=== PATIENT | female | born 1970 | race American Indian/Alaskan Native ===

== ENCOUNTER 2017-06-20 23:13 | Emergency (ER) | payer SELFPAY ==
[2017-06-21 04:03] VITALS: BP 128/92
[2017-06-21 05:40] LABS: Bilirubin,Urine NEG (Negative); Blood,Urine MOD (Negative); Ketones,Urine NEG (Negative); Leukocyte Esterase,Urine NEG (Negative); Mucus,Urine FEW /HPF; Nitrite,Urine NEG (Negative); Protein,Urine <15 mg/dL mg/dL (Negative); Urobilinogen,Urine < 2.0 mg/dL (<2.0)
--- NOTE | 2017-06-21 06:40 | Emergency Department Report ---
ED General Adult HPI - General Chief complaint: Skin/Abscess/Foreign Body Stated complaint: FREQUENT URINATION Time Seen by Provider: 06/21/17 06:35 Source: patient Mode of arrival: Ambulatory Limitations: No Limitations - History of Present Illness Initial comments: pt presents for retain condom, x 2 days , pt endorse condom came off during intercourse and has been unable to remove at home, pt denies pain no fever no chills no vaginal pain no vaginal discharger Onset/Timin -: days(s) Radiation: non-radiation Severity scale (0 -10): 0 Improves with: none Worsens with: none Associated Symptoms: denies other symptoms, other - Related Data Previous Rx's Medication Instructions Recorded Last Taken Type Hydrochlorothiazide [HCTZ] 25 mg PO QDAY #30 tablet 04/26/16 Unknown Rx amLODIPine [Norvasc] 10 mg PO DAILY #30 tablet 04/26/16 Unknown Rx Fluconazole [Diflucan TAB] 150 mg PO ONCE #1 tablet 06/21/17 Unknown Rx metroNIDAZOLE [Flagyl] 500 mg PO Q12HR #14 tab 06/21/17 Unknown Rx Allergies Allergy/AdvReac Type Severity Reaction Status Date / Time No Known Allergies Allergy Verified 10/15/14 09:39 ED Review of Systems ROS: Stated complaint: FREQUENT URINATION Other details as noted in HPI Constitutional: denies: chills, fever Eyes: denies: eye pain, eye discharge, vision change ENT: denies: ear pain, throat pain Respiratory: denies: cough, shortness of breath, wheezing Cardiovascular: denies: chest pain, palpitations Endocrine: no symptoms reported Gastrointestinal: denies: abdominal pain, nausea, diarrhea Genitourinary: other (retained condom ). denies: urgency, dysuria, discharge Musculoskeletal: denies: back pain, joint swelling, arthralgia Skin: denies: rash, lesions Neurological: denies: headache, weakness, paresthesias Psychiatric: denies: anxiety, depression Hematological/Lymphatic: denies: easy bleeding, easy bruising ED Past Medical Hx - Past Medical History Previous Medical History?: Yes Hx Hypertension: Yes Hx Diabetes: No Additional medical history: HIGH CHOLESTEROL - Surgical History Past Surgical History?: Yes Additional Surgical History: tubal ligation - Social History Smoking Status: Never Smoker Substance Use Type: Alcohol - Medications Home Medications: Home Medications Medication Instructions Recorded Confirmed Last Taken Type Hydrochlorothiazide [HCTZ] 25 mg PO QDAY #30 tablet 04/26/16 Unknown Rx amLODIPine [Norvasc] 10 mg PO DAILY #30 tablet 04/26/16 Unknown Rx Fluconazole [Diflucan TAB] 150 mg PO ONCE #1 tablet 06/21/17 Unknown Rx metroNIDAZOLE [Flagyl] 500 mg PO Q12HR #14 tab 06/21/17 Unknown Rx ED Physical Exam - General Limitations: No Limitations General appearance: alert, in no apparent distress - Head Head exam: Present: atraumatic, normocephalic - Eye Eye exam: Present: normal appearance - ENT ENT exam: Present: mucous membranes moist - Neck Neck exam: Present: normal inspection - Respiratory Respiratory exam: Present: normal lung sounds bilaterally. Absent: respiratory distress - Cardiovascular Cardiovascular Exam: Present: regular rate, normal rhythm. Absent: systolic murmur, diastolic murmur, rubs, gallop - GI/Abdominal GI/Abdominal exam: Present: soft, normal bowel sounds - Rectal Rectal exam: Present: deferred - External exam: Present: normal external exam Speculum exam: Present: foreign body (retain condom ). Absent: erythema, vaginal discharge, cervical discharge, vaginal bleeding, tissue, laceration - Extremities Exam Extremities exam: Present: normal inspection - Back Exam Back exam: Present: normal inspection - Neurological Exam Neurological exam: Present: alert, oriented X3 - Psychiatric Psychiatric exam: Present: normal affect, normal mood - Skin Skin exam: Present: warm, dry, intact, normal color. Absent: rash ED Course Vital Signs 06/20/17 06/21/17 23:23 04:00 Temperature 98.6 F 98.4 F Pulse Rate 98 H 82 Respiratory 16 82 H Rate Blood Pressure 118/88 Blood Pressure 128/92 [Left] O2 Sat by Pulse 98 98 Oximetry ED Medical Decision Making - Medical Decision Making pt presents for retain condom, x 2 days , pt endorse condom came off during intercourse and has been unable to remove at home, pt denies pain no fever no chills no vaginal pain no vaginal discharge, exam mons normal, vulvovaginal : normal vagina: foreign body , condom removed intact wtih forcepts, exam moderate erythema, cottage cheese dischargre plan, diflucan, flagy po bid x 7 days, pt was offered std prophylaxis however she refuses same, pt will follow up with her MANAGER LOAN next week pt verbalized agreement and understanding of same. Critical care attestation.: If time is entered above; I have spent that time in minutes in the direct care of this critically ill patient, excluding procedure time. ED Disposition Clinical Impression: Vaginal foreign body Qualifiers: Encounter type: initial encounter Qualified Code(s): T19.2XXA - Foreign body in vulva and vagina, initial encounter Disposition: TO HOME OR SELFCARE Is pt being admited?: No Does the pt Need Aspirin: No Condition: Good Instructions: Vaginal Foreign Body (ED) Prescriptions: Fluconazole [Diflucan TAB] 150 mg PO ONCE #1 tablet metroNIDAZOLE [Flagyl] 500 mg PO Q12HR #14 tab Referrals: PRIMARY CARE, [Primary Care Provider] - 3-5 Days Forms: Work/School Release Form(ED) Time of Disposition: 06:46
== END 2017-06-21 06:56 | disposition home or self-care (01) ==
LOC: ED 23:13
DX: T19.2XXA Foreign body in vulva and vagina, initial encounter (principal); I10 Essential (primary) hypertension; E78.00 Pure hypercholesterolemia, unspecified; W45.8XXA Other foreign body or object entering through skin, initial encounter; Y93.89 Activity, other specified; Y99.9 Unspecified external cause status; Y92.89 Other specified places as the place of occurrence of the external cause
CPT/HCPCS: 81001; 81025

== ENCOUNTER 2017-07-19 10:36 | Emergency (ER) | payer SELFPAY ==
[2017-07-19 11:30] LABS: Basophils % (Auto) 0.7 % (0.0-1.8); Eosinophils % (Auto) 2.7 % (0.0-4.3); Hematocrit 43.4 % (30.3-42.9); Hemoglobin 14.6 gm/dl (10.1-14.3); Mean Corpuscular HGB Conc 34 % (30-34); Mean Corpuscular Hemoglobin 31 pg (28-32); Mean Corpuscular Volume 93 fl (79-97); Platelet Count 250 K/mm3 (140-440); Red Blood Count 4.67 M/mm3 (3.65-5.03); Red Cell Distribution Width 13.6 % (13.2-15.2); White Blood Count 5.2 K/mm3 (4.5-11.0)
[2017-07-19 11:31] LABS: Bacteria,Urine 1+ /HPF (Negative); Bilirubin,Urine NEG (Negative); Blood,Urine MOD (Negative); Ketones,Urine NEG (Negative); Leukocyte Esterase,Urine NEG (Negative); Mucus,Urine FEW /HPF; Nitrite,Urine NEG (Negative); Protein,Urine <15 mg/dL mg/dL (Negative); Urobilinogen,Urine < 2.0 mg/dL (<2.0)
[2017-07-19 11:39] LABS: Anion Gap 15 mmol/L; BUN/Creatinine Ratio 17.14; Blood Urea Nitrogen 12 mg/dL (7-17); Calcium 9.2 mg/dL (8.4-10.2); Carbon Dioxide 25 mmol/L (22-30); Chloride 99.2 mmol/L (98-107); Glucose 88 mg/dL (65-100); Potassium 3.6 mmol/L (3.6-5.0); Sodium 136 mmol/L (137-145)
--- NOTE | 2017-07-19 13:34 | Emergency Department Report ---
ED Abdominal Pain HPI - General Chief Complaint: Urogenital-Female Stated Complaint: FREQUENT URINATION AND DISCHARGE Time Seen by Provider: 07/19/17 13:17 Source: patient Mode of arrival: Ambulatory Limitations: No Limitations - History of Present Illness Initial Comments: PT states she was seen almost a month ago for removal of a retained tampon. PT states no tests were done was given an RX for Diflucan and Flagyl. PT states she took them as instructed. PT states for 2 weeks she has noticed urinary frequency. PT states for a week, she has had LLQ abd pain. PT states it feels better after she voids. PT also reports vaginal discharge since yesterday. 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 Complaint: abdominal pain -: Gradual, week(s) Location: LLQ Migration to: no migration Severity scale (0 -10): 5 Quality: fullness, other (pressure ) Consistency: constant Improves With: other (urination ) Worsens With: nothing Context: recent antibiotic use Associated Symptoms: denies: nausea, vomiting, diarrhea, fever, dysuria, hematuria - Related Data LMP (females 10-50): other (ablation) Previous Rx's Medication Instructions Recorded Last Taken Type Hydrochlorothiazide [HCTZ] 25 mg PO QDAY #30 tablet 04/26/16 Unknown Rx amLODIPine [Norvasc] 10 mg PO DAILY #30 tablet 04/26/16 Unknown Rx Fluconazole [Diflucan TAB] 150 mg PO ONCE #1 tablet 07/19/17 Unknown Rx Lactobacillus Acidophilus/Fos 1 each PO DAILY #30 tablet 07/19/17 Unknown Rx [Acidophilus Probiotic Tablet] Polyethylene Glycol 3350 [Miralax 17 gm PO DAILY PRN #14 powd.pack 07/19/17 Unknown Rx 3350] Allergies Allergy/AdvReac Type Severity Reaction Status Date / Time No Known Allergies Allergy Verified 07/19/17 10:48 ED Review of Systems ROS: Stated complaint: FREQUENT URINATION AND DISCHARGE Other details as noted in HPI Comment: All other systems reviewed and negative Constitutional: denies: fever, malaise Endocrine: intolerance to heat Gastrointestinal: abdominal pain, constipation (last BM 1 week ago after taking laxitive ). denies: nausea, vomiting, diarrhea Genitourinary: as per HPI, discharge. denies: dysuria, abnormal menses ED Past Medical Hx - Past Medical History Hx Hypertension: Yes Hx Diabetes: No Additional medical history: HIGH CHOLESTEROL - Surgical History Additional Surgical History: tubal ligation. UTERINE ABLATION - Social History Smoking Status: Never Smoker Substance Use Type: Alcohol - Medications Home Medications: Home Medications Medication Instructions Recorded Confirmed Last Taken Type Hydrochlorothiazide [HCTZ] 25 mg PO QDAY #30 tablet 04/26/16 Unknown Rx amLODIPine [Norvasc] 10 mg PO DAILY #30 tablet 04/26/16 Unknown Rx Fluconazole [Diflucan TAB] 150 mg PO ONCE #1 tablet 07/19/17 Unknown Rx Lactobacillus Acidophilus/Fos 1 each PO DAILY #30 tablet 07/19/17 Unknown Rx [Acidophilus Probiotic Tablet] Polyethylene Glycol 3350 [Miralax 17 gm PO DAILY PRN #14 powd.pack 07/19/17 Unknown Rx 3350] ED Physical Exam - General Limitations: No Limitations General appearance: alert, in no apparent distress - Head Head exam: Present: atraumatic, normocephalic, normal inspection - Eye Eye exam: Present: normal appearance, PERRL. Absent: conjunctival injection, nystagmus - ENT ENT exam: Present: normal exam, mucous membranes moist, normal external ear exam - Neck Neck exam: Present: normal inspection, full ROM - Respiratory Respiratory exam: Present: normal lung sounds bilaterally. Absent: respiratory distress, wheezes, chest wall tenderness - Cardiovascular Cardiovascular Exam: Present: regular rate, normal rhythm, normal heart sounds - GI/Abdominal GI/Abdominal exam: Present: soft, normal bowel sounds. Absent: distended, tenderness, guarding, rebound, rigid, mass - External exam: Present: normal external exam, other (female family practice physician assistant at bedside ) Speculum exam: Present: vaginal discharge, other (moderate amount of thick white discharge noted ). Absent: cervical discharge, vaginal bleeding, foreign body, tissue Bi-manual exam: Present: normal bi-manual exam. Absent: cervical motion tendernes, adnexal tenderness, adnexal mass, uterine enlargement, uterine tenderness - Extremities Exam Extremities exam: Present: normal inspection, full ROM, normal capillary refill. Absent: tenderness - Back Exam Back exam: Present: normal inspection, full ROM. Absent: tenderness, CVA tenderness (R), CVA tenderness (L) - Neurological Exam Neurological exam: Present: alert, oriented X3, normal gait - Psychiatric Psychiatric exam: Present: normal affect, normal mood - Skin Skin exam: Present: warm, dry, intact ED Course Vital Signs 07/19/17 07/19/17 10:52 15:25 Temperature 97.7 F Pulse Rate 85 80 Respiratory 18 18 Rate Blood Pressure 134/94 Blood Pressure 129/75 [Left] O2 Sat by Pulse 100 99 Oximetry - Reevaluation(s) Reevaluation #1: 07/19/17 14:29 PT aware of plan of care. Reevaluation #2: 07/19/17 15:12 PT is aware of my interpretation of her XR result. PT is aware of wet prep results. PT states she takes two baths a day. PT aware that baths can alter ph. pt encouraged to change from baths to showers. PT verbalizes understanding. - Pulse Oximetry Interpretation Digit-Finger Initial Pulse Oximetry Readin Actions Taken: none ED Medical Decision Making - Lab Data Result diagrams: 07/19/17 11:04 07/19/17 11:04 Labs 07/19/17 07/19/17 07/19/17 11:04 11:04 11:04 WBC 5.2 RBC 4.67 Hgb 14.6 H Hct 43.4 H MCV 93 MCH 31 MCHC 34 RDW 13.6 Plt Count 250 Lymph % (Auto) 47.1 H [place] % (Auto) 7.0 Eos % (Auto) 2.7 Baso % (Auto) 0.7 Lymph # 2.5 [place] # 0.4 Eos # 0.1 Baso # 0.0 Seg Neutrophils % 42.5 Seg Neutrophils # 2.2 Sodium 136 L Potassium 3.6 Chloride 99.2 Carbon Dioxide 25 Anion Gap 15 BUN 12 Creatinine 0.7 Estimated GFR > 60 BUN/Creatinine Ratio 17.14 Glucose 88 Calcium 9.2 HCG, Qual Negative Urine Color Urine Turbidity Urine pH Ur Specific [place] Urine Protein Urine Glucose (UA) Urine Ketones Urine Blood Urine Nitrite Urine Bilirubin Urine Urobilinogen Ur Leukocyte Esterase Urine WBC (Auto) Urine RBC (Auto) U Epithel Cells (Auto) Urine Bacteria (Auto) Urine Mucus 07/19/17 11:17 WBC RBC Hgb Hct MCV MCH MCHC RDW Plt Count Lymph % (Auto) [place] % (Auto) Eos % (Auto) Baso % (Auto) Lymph # [place] # Eos # Baso # Seg Neutrophils % Seg Neutrophils # Sodium Potassium Chloride Carbon Dioxide Anion Gap BUN Creatinine Estimated GFR BUN/Creatinine Ratio Glucose Calcium HCG, Qual Urine Color Yellow Urine Turbidity Clear Urine pH 6.0 Ur Specific [place] 1.020 Urine Protein <15 mg/dl Urine Glucose (UA) Neg Urine Ketones Neg Urine Blood Mod Urine Nitrite Neg Urine Bilirubin Neg Urine Urobilinogen < 2.0 Ur Leukocyte Esterase Neg Urine WBC (Auto) 1.0 Urine RBC (Auto) 4.0 U Epithel Cells (Auto) 1.0 Urine Bacteria (Auto) 1+ Urine Mucus Few - Radiology Data Radiology results: image reviewed interpreted by me: XR KUB - non obstruction, moderate amount of stool - Differential Diagnosis uti, , vaginitis, cervicitis, constipation, obstruction Critical Care Time: No Critical care attestation.: If time is entered above; I have spent that time in minutes in the direct care of this critically ill patient, excluding procedure time. ED Disposition Clinical Impression: Urinary frequency Constipation Qualifiers: Constipation type: unspecified constipation type Qualified Code(s): K59.00 - Constipation, unspecified Vaginitis Qualifiers: Chronicity: acute Qualified Code(s): N76.0 - Acute vaginitis Disposition: - TO HOME OR SELFCARE Is pt being admited?: No Does the pt Need Aspirin: No Condition: Stable Instructions: Constipation (ED), Vaginitis (ED) Additional Instructions: Start the Miralax tonight Follow up with PCP in 3-5 days Avoid taking baths. This can alter vaginal ph. Return to the ED if you develop fevers, chills, nausea or vomiting Prescriptions: Fluconazole [Diflucan TAB] 150 mg PO ONCE #1 tablet Lactobacillus Acidophilus/Fos [Acidophilus Probiotic Tablet] 1 each PO DAILY # 30 tablet Polyethylene Glycol 3350 [Miralax 3350] 17 gm PO DAILY PRN #14 powd.pack PRN Reason: Constipation Referrals: PRIMARY CARE, [Primary Care Provider] - 3-5 Days UNIQUE CARTER MD [Staff Physician] - 3-5 Days [facility] [Outside] - 3-5 Days [facility] [Outside] - 3-5 Days Forms: Work/School Release Form(ED) Time of Disposition: 15:18
[2017-07-19 16:04] VITALS: BP 129/75
--- NOTE | 2017-07-19 16:18 | XRay Report ---
FINAL REPORT EXAM: XR ABDOMEN 1V AP HISTORY: Constipation x 1 week TECHNIQUE: Supine views of the abdomen PRIORS: None. FINDINGS: The bowel gas pattern is nonspecific. Moderate stool is present throughout the entire colon which can be associated with constipation. No free air is identified. Soft tissues have no evidence for mass shadows or calcifications. The bony structures are intact. IMPRESSION: Nonspecific, nonobstructive bowel gas pattern with no acute process noted. Moderate stool is present throughout the colon is likely consistent with constipation.
== END 2017-07-19 15:25 | disposition home or self-care (01) ==
LOC: ED 10:36
DX: K59.00 Constipation, unspecified (principal); N76.0 Acute vaginitis; R35.0 Frequency of micturition; I10 Essential (primary) hypertension; E78.00 Pure hypercholesterolemia, unspecified
CPT/HCPCS: 36415; 74000; 80048; 81001; 84703; 85025; 87210; 87591; 99284

== ENCOUNTER 2018-04-07 11:04 | Emergency (ER) | payer SELFPAY ==
[2018-04-07 11:09] VITALS: BP 144/93
--- NOTE | 2018-04-07 11:20 | Emergency Department Report ---
ED General Adult HPI - General Chief complaint: Medical Clearance Stated complaint: EXPOSURE TO MOLD Time Seen by Provider: 04/07/18 11:11 Source: patient Mode of arrival: Ambulatory Limitations: No Limitations - History of Present Illness Initial comments: Patient is a 47-year-old Female who is presenting with possible mold exposure. Patient was in a rental home that have not have a IN for multiple years. Patient states that for the past several months she's been there when she is in her home she's had watering eyes fatigue runny nose headaches. Patient states that when she is not there she feels much improved. Patient is not taking any [id number] meds. Patient denies any fevers chills nausea vomiting chest pain. - Related Data Previous Rx's Medication Instructions Recorded Last Taken Type Hydrochlorothiazide [HCTZ] 25 mg PO QDAY #30 tablet 04/26/16 Unknown Rx amLODIPine [Norvasc] 10 mg PO DAILY #30 tablet 04/26/16 Unknown Rx Fluconazole [Diflucan TAB] 150 mg PO ONCE #1 tablet 07/19/17 Unknown Rx Lactobacillus Acidophilus/Fos 1 each PO DAILY #30 tablet 07/19/17 Unknown Rx [Acidophilus Probiotic Tablet] Polyethylene Glycol 3350 [Miralax 17 gm PO DAILY PRN #14 powd.pack 07/19/17 Unknown Rx 3350] ALBUTEROL Inhaler [ProAir HFA 2 puff IH QID PRN #1 inhalation 04/07/18 Unknown Rx Inhaler] Loratadine [Claritin] 10 mg PO DAILY #30 tablet 04/07/18 Unknown Rx Allergies Allergy/AdvReac Type Severity Reaction Status Date / Time No Known Allergies Allergy Verified 07/19/17 10:48 ED Review of Systems ROS: Stated complaint: EXPOSURE TO MOLD Other details as noted in HPI Comment: All other systems reviewed and negative Musculoskeletal: joint swelling (patient has some chronic swelling to the left ankle secondary to an injury 20 years ago.) ED Past Medical Hx - Past Medical History Previous Medical History?: Yes Hx Hypertension: Yes Hx Diabetes: No Additional medical history: HIGH CHOLESTEROL - Surgical History Past Surgical History?: Yes Additional Surgical History: tubal ligation. UTERINE ABLATION - Social History Smoking Status: Never Smoker Substance Use Type: None - Medications Home Medications: Home Medications Medication Instructions Recorded Confirmed Last Taken Type Hydrochlorothiazide [HCTZ] 25 mg PO QDAY #30 tablet 04/26/16 Unknown Rx amLODIPine [Norvasc] 10 mg PO DAILY #30 tablet 04/26/16 Unknown Rx Fluconazole [Diflucan TAB] 150 mg PO ONCE #1 tablet 07/19/17 Unknown Rx Lactobacillus Acidophilus/Fos 1 each PO DAILY #30 tablet 07/19/17 Unknown Rx [Acidophilus Probiotic Tablet] Polyethylene Glycol 3350 [Miralax 17 gm PO DAILY PRN #14 powd.pack 07/19/17 Unknown Rx 3350] ALBUTEROL Inhaler [ProAir HFA 2 puff IH QID PRN #1 inhalation 04/07/18 Unknown Rx Inhaler] Loratadine [Claritin] 10 mg PO DAILY #30 tablet 04/07/18 Unknown Rx ED Physical Exam - General Limitations: No Limitations General appearance: alert, in no apparent distress - Head Head exam: Present: atraumatic, normocephalic - Eye Eye exam: Present: normal appearance - ENT ENT exam: Present: mucous membranes moist - Neck Neck exam: Present: normal inspection - Respiratory Respiratory exam: Present: normal lung sounds bilaterally. Absent: respiratory distress, wheezes, rales, rhonchi - Cardiovascular Cardiovascular Exam: Present: regular rate, normal rhythm. Absent: systolic murmur, diastolic murmur, rubs, gallop - GI/Abdominal GI/Abdominal exam: Present: soft, normal bowel sounds - Extremities Exam Extremities exam: Present: normal inspection - Back Exam Back exam: Present: normal inspection - Neurological Exam Neurological exam: Present: alert, oriented X3 - Psychiatric Psychiatric exam: Present: normal affect, normal mood - Skin Skin exam: Present: warm, dry, intact, normal color. Absent: rash ED Course Vital Signs 04/07/18 11:07 Temperature 98.7 F Pulse Rate 91 H Respiratory 18 Rate Blood Pressure 144/93 O2 Sat by Pulse 99 Oximetry ED Medical Decision Making - Medical Decision Making Patient most likely has allergic rhinitis secondary to exposure to mold. Patient did show me pictures of her home which do show black spots on the baseboard in multiple areas. Patient be put on meds for symptomatic relief. Critical care attestation.: If time is entered above; I have spent that time in minutes in the direct care of this critically ill patient, excluding procedure time. ED Disposition Clinical Impression: Mold exposure Allergic rhinitis Qualifiers: Allergic rhinitis trigger: other Allergic rhinitis seasonality: non-seasonal Qualified Code(s): J30.89 - Other allergic rhinitis Disposition: DC-01 TO HOME OR SELFCARE Is pt being admited?: No Does the pt Need Aspirin: No Condition: Stable Instructions: Allergic Rhinitis (ED) Prescriptions: ALBUTEROL Inhaler [ProAir HFA Inhaler] 2 puff IH QID PRN #1 inhalation PRN Reason: Shortness Of Breath Loratadine [Claritin] 10 mg PO DAILY #30 tablet
== END 2018-04-07 11:32 | disposition home or self-care (01) ==
LOC: ED 11:04
DX: I10 Essential (primary) hypertension (principal); E78.00 Pure hypercholesterolemia, unspecified; Z98.51 Tubal ligation status; J30.9 Allergic rhinitis, unspecified; Z77.120 Contact with and (suspected) exposure to mold (toxic)
CPT/HCPCS: 99281

== ENCOUNTER 2019-04-25 14:43 | Emergency (ER) | payer OTHER ==
[2019-04-25 14:58] VITALS: BP 181/92
--- NOTE | 2019-04-25 15:01 | Emergency Department Report ---
ED Rash HPI - HPI Chief Complaint: Skin Rash Stated Complaint: RASH Duration: 2 Days Location: Other Suspected Cause: Unknown Rash Symptoms: Yes Itching Severity: mild Other History: 48 y/o female comes in for a rash that itches on her right buttock for 2 days. No pets. ED Review of Systems ROS: Stated complaint: RASH Other details as noted in HPI Comment: All other systems reviewed and negative Skin: rash ED Past Medical Hx - Past Medical History Previous Medical History?: Yes Hx Hypertension: Yes Hx Diabetes: No Additional medical history: HIGH CHOLESTEROL - Surgical History Past Surgical History?: Yes Additional Surgical History: tubal ligation. UTERINE ABLATION - Social History Smoking Status: Never Smoker Substance Use Type: None - Medications Home Medications: Home Medications Medication Instructions Recorded Confirmed Last Taken Type amLODIPine [Norvasc] 10 mg PO DAILY #30 tablet 04/26/16 Unknown Rx hydroCHLOROthiazide [HCTZ] 25 mg PO QDAY #30 tablet 04/26/16 Unknown Rx Fluconazole [Diflucan TAB] 150 mg PO ONCE #1 tablet 07/19/17 Unknown Rx Lactobacillus Acidophilus/Fos 1 each PO DAILY #30 tablet 07/19/17 Unknown Rx [Acidophilus Probiotic Tablet] Polyethylene Glycol 3350 [Miralax 17 gm PO DAILY PRN #14 powd.pack 07/19/17 Unknown Rx 3350] ALBUTEROL Inhaler (OR & NICU) 2 puff IH QID PRN #1 inhalation 04/07/18 Unknown Rx [ProAir HFA Inhaler] Loratadine [Claritin] 10 mg PO DAILY #30 tablet 04/07/18 Unknown Rx Clotrimazole/Betamethasone Dip 1 applic TP BID #15 cream..g. 04/25/19 Unknown Rx [Lotrisone Cream] Rash Exam - Exam General: Vital signs noted. No distress. Alert and acting appropriately. HEENT: No Periorbital Edema, No Conjuctival Injection, No Chemosis, No Perioral Edema, No Tongue Edema, No Uvular Edema, No Compromised Airway, No Drooling Skin: Yes Maculopapular Rash, Yes Erythema, No Urticarial Rash, No Weeping, No Tenderness, No Edema, No Encrustations Other: Positive: Abdomen Normal, Neurologic Normal, Musculoskeletal Normal ED Medical Decision Making - Medical Decision Making 48 y/o female comes in for a rash on her right buttock it appears to be a tinea. Will place on antifungal cream. Critical care attestation.: If time is entered above; I have spent that time in minutes in the direct care of this critically ill patient, excluding procedure time. ED Disposition Clinical Impression: Tinea corporis Disposition: DC-01 TO HOME OR SELFCARE Is pt being admited?: No Does the pt Need Aspirin: No Condition: Stable Instructions: Tinea Corporis (ED) Additional Instructions: Use cream as needed for rash. Prescriptions: Clotrimazole/Betamethasone Dip [Lotrisone Cream] 1 applic TP BID #15 cream..g. Referrals: [facility] [Outside] - 3-[address] [facility] [Outside] - 3-5 Days
== END 2019-04-25 15:35 | disposition home or self-care (01) ==
LOC: ED 14:43
DX: B35.4 Tinea corporis (principal); I10 Essential (primary) hypertension; E78.00 Pure hypercholesterolemia, unspecified; Z98.51 Tubal ligation status; Z79.899 Other long term (current) drug therapy
CPT/HCPCS: 99282

== ENCOUNTER 2022-04-10 05:08 | Emergency (ER) | payer SELFPAY ==
[2022-04-10 05:18] VITALS: BP 152/91
== END 2022-04-10 10:00 | disposition left against medical advice (07) ==
LOC: ED 05:08
DX: R22.0 Localized swelling, mass and lump, head (principal); Z53.21 Procedure and treatment not carried out due to patient leaving prior to being seen by health care provider